=== PATIENT | female | born 1940 | race Caucasian/White ===

== ENCOUNTER 2016-09-15 16:33 | Emergency (ER) | payer MEDICARE, OTHER ==
[2016-09-15 16:56] VITALS: TEMP 97.6
[2016-09-15] MEDS: LIDOCAINE VIS-MYLANTA 30 ML UD PO ONE (17:13)
--- NOTE | 2016-09-15 17:22 | RAD ---
NAME: KAUSHAL MENDOSAPROCEDURE: XR CHEST 2 VIEWSORDER DATE: 09/15/2016 4:55 PM CSTACCESSION NUMBER: [id number] CLINICAL HISTORY: chest pain INDICATION: Same as above COMPARISON: 12/29/2012 TECHNIQUE: PA and and lateral chest radiographs were obtained. FINDINGS: The lung mtz are well inflated. There are no discrete airspace infiltrates, pneumothoraces or pleural effusions. The pulmonary vascularity is normal The cardiomediastinal silhouette is unremarkable for patient's age and sex. IMPRESSION: There is no acute pleural-parenchymal process seen in the imaged lung mtz. Place of interpretation: Teleradiology. 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
[2016-09-15] MEDS ORDERED: ENOXAPARIN SODIUM 80 MG/0.8 ML SYG SUBCU ONE (18:07)
[2016-09-15] MEDS: ASPIRIN (CHEWABLE) 81 MG TAB PO ONE (18:08)
[2016-09-15] MEDS: CLOPIDOGREL 75 MG TAB PO ONE (18:09)
[2016-09-15] MEDS: METOPROLOL TARTRATE 50 MG TAB PO ONE (18:10)
--- NOTE | 2016-09-15 18:18 | ED.PDOC ---
History of Present Illness - General Chief Complaint: Chest Pain/NV Stated Complaint: chest pain Time Seen by Provider: 09/15/16 16:45 Source: patient Exam Limitations: no limitations - History of Present Illness Initial Comments: The patient is a 76-year-old female presenting to the emergency room secondary to intermittent chest pain for the last 2 nights. She is largely chest pain free upon arrival here rating it a 1-2/10. Chest pain is substernal with radiation to the left shoulder and left jaw. No palpitations. No syncopal or near syncope. It is started both nights around 10 PM when she is up doing stuff usually cleaning the kitchen. It does last most of the way through the night. Does get better around morning. She has seen Dr. Patel in the past for her hypertension. She denies any coronary disease in the past. She recently lost her a week and a half ago. No fevers. No other symptoms.she does have gastroesophageal reflux disease but is currently not taking medications for it. Severity: moderate Improving Factors: rest Worsening Factors: nothing Associated Symptoms: malaise Allergies/Adverse Reactions: Allergies Sulfamethoxazole w/Trimethoprim [From Bactrim] Allergy (Intermediate, Verified 11/08/14 07:17) Rash Home Medications: Ambulatory Orders Levothyroxine Sodium [Levoxyl] 75 mcg PO DAILY 12/29/12 Gabapentin 600 mg PO TID 08/27/15 Methylphenidate HCl [Ritalin] 10 mg PO QID 08/27/15 Vortioxetine HBr [Brintellix] 10 mg PO DAILY 08/27/15 Review of Systems - Review of Systems Constitutional: States: no symptoms reported EENTM: States: no symptoms reported Respiratory: States: no symptoms reported Cardiology: States: chest pain Gastrointestinal/Abdominal: States: no symptoms reported Genitourinary: States: no symptoms reported Musculoskeletal: States: no symptoms reported Skin: States: no symptoms reported Neurological: States: no symptoms reported Endocrine: States: no symptoms reported All other Systems: No Change from Baseline Past Medical History (General) - Patient Medical History Hx Seizures: No Hx Stroke: No Hx Asthma: No Hx of COPD: No Hx Cardiac Disorders: Yes - high lipids,Leaky valve Hx Congestive Heart Failure: No Hx Pacemaker: No Hx Hypertension: Yes Hx Diabetes: No Hx MRSA: No MRSA Source:: Wound Surgical History: Hysterectomy - Vaccination History Hx Influenza Vaccination: No Hx Pneumococcal Vaccination: Yes - Social History Hx Tobacco Use: Yes - quit in 1971 Hx Alcohol Use: No Hx Substance Use: No Hx Physical Abuse: No Hx Emotional Abuse: No Family Medical History - Family History Father Living Status: Physical Exam - Physical Exam General Appearance: Alert, No apparent distress Eye Exam: bilateral normal Ears, Nose, Throat: normal ENT inspection, normal pharynx Neck: non-tender, full range of motion, supple, normal inspection Respiratory: chest non-tender, lungs clear, normal breath sounds, no respiratory distress, no accessory muscle use Cardiovascular/Chest: normal peripheral pulses, regular rate, rhythm, no edema Peripheral Pulses: radial,right: 2+, radial,left: 2+, dorsalis pedis,right: 2+, dorsalis pedis,left: 2+ Gastrointestinal/Abdominal: normal bowel sounds, non tender Rectal Exam: deferred Back Exam: normal inspection, no CVA tenderness Extremity: normal range of motion, non-tender, normal inspection, no pedal edema , normal capillary refill Neurologic: alert, normal mood/affect, oriented x 3 Skin Exam: normal color Comments: Vital Signs - 24 hr 09/15/16 16:50 Temperature 97.6 F Pulse Rate [ 70 Right Brachial] Respiratory 20 Rate Blood Pressure 160/77 [Right Arm] O2 Sat by Pulse 96 Oximetry Progress - Progress Progress: 09/15/16 18:19 the patient is a 76-year-old female presenting with chest pain that is a non-ST elevation myocardial infarction until proven otherwise. Cardiac enzymes are mildly elevated. BNP is significantly more elevated than at her previous check. The patient has been given a dose of Lovenox, aspirin and Plavix. She is currently chest pain-free. The patient will be transferred to [facility] for cardiac evaluation. Her prime minister is Dr. Patel. No nitroglycerin at this time. Beta ginny has been given. - Results/Orders Results/Orders: Laboratory Tests 09/15/16 16:40 WBC 7.2 RBC 4.39 Hgb 14.3 Hct 43.1 MCV 98.2 MCH 32.5 H MCHC 33.3 RDW 13.7 Plt Count 265 MPV 7.9 Absolute Neuts (auto) 5.10 Absolute Lymphs (auto) 1.20 Absolute Monos (auto) 0.70 Absolute Eos (auto) 0.10 Absolute Basos (auto) 0.10 Neutrophils % 71.1 Lymphocytes % 16.6 L Monocytes % 10.4 H Eosinophils % 0.9 L Basophils % 1.0 PT 10.8 INR 0.950 PTT (SP) 28.0 D-Dimer, Quantitative < 200 Sodium 136 Potassium 3.3 L Chloride 101 Carbon Dioxide 25 Anion Gap 13.3 BUN 15 Creatinine 0.86 BUN/Creatinine Ratio 17.4 Random Glucose 111 H Serum Osmolality 273.5 L Calcium 9.4 Total Bilirubin 0.7 AST 32 ALT 21 Alkaline Phosphatase 90 Creatine Kinase 183 H CK-MB (CK-2) 12.4 H* CK-MB (CK-2) % 6.78 H Troponin I 0.06 H B-Natriuretic Peptide 312.0 H* Serum Total Protein 7.7 Albumin 4.5 Globulin 3.2 Albumin/Globulin Ratio 1.4 Amylase 47 Lipase 27 TSH 0.63 EKG shows normal sinus rhythm with poor R-wave progression in anterior leads. This EKG is consistent with EKG from 2013. No acute ST segment changes particularly concerning for ischemia. Possible mild LVH. Departure - Departure Clinical Impression: Acute myocardial infarction Qualifiers: Myocardial infarction ST status: non-ST elevation myocardial infarction Qualifier Code: (I21.4) Non-ST elevation (NSTEMI) myocardial infarction Disposition: Transfer to Hospital Home Medications: Ambulatory Orders Levothyroxine Sodium [Levoxyl] 75 mcg PO DAILY 12/29/12 Gabapentin 600 mg PO TID 08/27/15 Methylphenidate HCl [Ritalin] 10 mg PO QID 08/27/15 Vortioxetine HBr [Brintellix] 10 mg PO DAILY 08/27/15 Transfer to Outside Facility - Transfer Information Accepting Provider:: dr galeana Accepting Facility: [facility] Reason for Transfer: required specialist not available
[2016-09-15] MEDS ORDERED: NITROGLYCERIN 2% 1 GM UD TOP ONE (18:48)
[2016-09-15] MEDS: NITROGLYCERIN 2% 1 GM UD TOP ONE (18:53)
[2016-09-15 18:55] VITALS: BP 180/89; O2SAT 94
--- NOTE | 2016-10-11 23:49 | RAD ---
NAME: KAUSHAL MENDOSAPROCEDURE: XR CHEST 2 VIEWSORDER DATE: 09/15/2016 4:55 PM CSTACCESSION NUMBER: [id number] CLINICAL HISTORY: chest pain INDICATION: Same as above COMPARISON: 12/29/2012 TECHNIQUE: PA and and lateral chest radiographs were obtained. FINDINGS: The lung mtz are well inflated. There are no discrete airspace infiltrates, pneumothoraces or pleural effusions. The pulmonary vascularity is normal The cardiomediastinal silhouette is unremarkable for patient's age and sex. IMPRESSION: There is no acute pleural-parenchymal process seen in the imaged lung mtz. Place of interpretation: Teleradiology. Electronically signed by: Hiram Aguilar MD 09/15/2016 5:21 PM NURSE CASE MANAGEMENT
--- NOTE | 2016-10-12 04:24 | RAD ---
NAME: KAUSHAL MENDOSAPROCEDURE: XR CHEST 2 VIEWSORDER DATE: 09/15/2016 4:55 PM CSTACCESSION NUMBER: [id number] CLINICAL HISTORY: chest pain INDICATION: Same as above COMPARISON: 12/29/2012 TECHNIQUE: PA and and lateral chest radiographs were obtained. FINDINGS: The lung mtz are well inflated. There are no discrete airspace infiltrates, pneumothoraces or pleural effusions. The pulmonary vascularity is normal The cardiomediastinal silhouette is unremarkable for patient's age and sex. IMPRESSION: There is no acute pleural-parenchymal process seen in the imaged lung mtz. Place of interpretation: Teleradiology. 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
== END 2016-09-15 18:55 | disposition short-term general hospital (02) ==
LOC: ER 16:33
DX: I21.4 Non-ST elevation (NSTEMI) myocardial infarction (principal); I10 Essential (primary) hypertension; E78.5 Hyperlipidemia, unspecified; I38 Endocarditis, valve unspecified; Z87.891 Personal history of nicotine dependence; Z88.2 Allergy status to sulfonamides; Z79.899 Other long term (current) drug therapy
CPT/HCPCS: 36415; 71020; 80053; 82150; 82550; 82553; 83690; 83880; 84443; 84484; 85025; 85379; 85610; 85730; J1650

== ENCOUNTER 2016-11-25 16:59 | Emergency (ER) | payer MEDICARE, OTHER ==
[~2016-11-25 16:59] MED LIST: AMIODARONE HCL 150 MG/3 ML VIAL IVPB ONE; LIDOCAINE 2 % GEL 5 ML TUBE TOP ONE
[2016-11-25] MEDS ORDERED: AMIODARONE IV (LOAD) 150 MG in DEXTROSE 5% 100ML 100 ML IVPB ONE (17:22)
[2016-11-25] MEDS ORDERED: DEXTROSE 5% 100ML 100 ML IVPB ONE (17:26)
[2016-11-25] MEDS ORDERED: SODIUM CHLORIDE 0.9% (FLUSH) 10 ML SYG IV PRN (17:27)
[2016-11-25] MEDS ORDERED: NITROGLYCERIN 0.4 MG 25 EA TAB SL ONE (17:27)
[2016-11-25] MEDS ORDERED: ASPIRIN TABLET 325 MG TAB PO ONE (17:27)
[2016-11-25] MEDS ORDERED: AMIODARONE IV (MAINT) 900 MG in DEXTROSE 5% (AVIVA) 500ML 500 ML IVPB SCH (17:30)
[2016-11-25] MEDS ORDERED: AMIODARONE HCL 900 MG/18 ML VIAL IVPB ONE (17:34)
[2016-11-25] MEDS ORDERED: DEXTROSE 5% (AVIVA) 500ML 500 ML IVPB ONE (17:35)
--- NOTE | 2016-11-25 17:45 | ED.PDOC ---
History of Present Illness - General Chief Complaint: Syncope/Near Syncope Stated Complaint: syncope Time Seen by Provider: 11/25/16 17:27 Source: patient Exam Limitations: no limitations - History of Present Illness Initial Comments: PT REPORTS AN EPISODE OF SYNCOPE TODAY JUST BEFORE PRESENTING TO THE ED. PT STATES THAT SHE HAD NO WARNING PRIOR TO SYNCOPAL EPISODE. PT HAS BEEN EXPERIENCING INTERMITTENT EPISODES OF CHEST PRESSURE AND PALPITATIONS. PT WAS SEEN BY HER RAILROAD ENGINEER (DR. LOCKHART) YESTERDAY AND HAD AN EKG DONE IN THE OFFICE. PT SUSTAINED ABRASIONS TO THE FACE, LACERATION TO THE LIP AND CHIPPED TEETH A RESULT OF THE FALL. Timing/Prior Episodes: multiple episodes today, recent history Precipitating Factors: rapid heart beat Context: standing Loss of Consciousness: brief (seconds) Current Symptoms: chest pain, dizziness, other - PALPITATIONS Allergies/Adverse Reactions: Allergies Sulfamethoxazole w/Trimethoprim [From Bactrim] Allergy (Intermediate, Verified 11/08/14 07:17) Rash Home Medications: Ambulatory Orders Levothyroxine Sodium [Levoxyl] 75 mcg PO DAILY 12/29/12 Gabapentin 600 mg PO TID 08/27/15 Methylphenidate HCl [Ritalin] 10 mg PO QID 08/27/15 Vortioxetine HBr [Brintellix] 10 mg PO DAILY 08/27/15 Review of Systems - Review of Systems Constitutional: Denies: chills, fever EENTM: Denies: ear pain, throat pain Respiratory: Denies: cough, short of breath Cardiology: States: see HPI, chest pain, palpitations, syncope Gastrointestinal/Abdominal: Denies: abdominal pain, nausea Genitourinary: Denies: dysuria, frequency Musculoskeletal: Denies: joint pain, neck pain Skin: Denies: change in color, dryness Neurological: Denies: numbness, paresthesia Past Medical History (General) - Patient Medical History Hx Seizures: No Hx Stroke: No Hx Asthma: No Hx of COPD: No Hx Cardiac Disorders: Yes - high lipids,Leaky valve Hx Congestive Heart Failure: No Hx Pacemaker: No Hx Hypertension: Yes Hx Diabetes: No Hx MRSA: No MRSA Source:: Wound - Vaccination History Hx Tetanus, Diphtheria Vaccination: - unknown Hx Influenza Vaccination: No Hx Pneumococcal Vaccination: Yes - Social History Hx Tobacco Use: Yes - quit in 1971 Hx Alcohol Use: No Hx Substance Use: No Hx Physical Abuse: No Hx Emotional Abuse: No Physical Exam - Physical Exam General Appearance: Anxious, Obvious distress Eyes, Ears, Nose, Throat Exam: other - SUPERFICIAL ABRASION TO THE PHILTRIM, CHIPPED INSCISORS, 1 CM LACERATON TO THE MUCOSAL SURFACE OF THE UPPER LIP Neck: non-tender, full range of motion, supple Cardiovascular/Respiratory: no M/R/G, irregularly irregular Gastrointestinal/Abdominal: non tender, soft Back Exam: normal inspection, no vertebral tenderness Extremity: normal range of motion, pedal edema - 1+, other - SKIN TEAR TO THE LEFT FOREARM AN RIGHT KNEE Mental Status: alert, oriented x 3 white spooler Exam: normal hearing, normal speech, PERRL Motor/Sensory: no motor deficit, no sensory deficit Skin Exam: normal color, warm/dry Progress - Progress Progress: 11/25/16 17:40 150MG IV AMIODARONE ORDERED WITH AMIODARONE DRIP FOR RUNS OF NON SUSTAINED VTACH. 11/25/16 18:[address] WEAVER AT [facility] WHO AGREES TO ACCEPT TRANSFER. - Results/Orders Results/Orders: 11/25/16 17:27 Telemetry .ONCE Sodium Chloride 0.9% (Flush) [Saline Flush Syringe] 10 ml IV PRN PRN EKG Stat Pulse Ox Stat 11/25/16 17:28 Pulse Oximetry Assessment DAILY 11/25/16 17:30 Amiodarone IV (Maint) [Cordarone IV (Maint)] 900 mg Dextrose 5% (Ryann) 500Ml [D5W 500ml (RYANN BAG)] 500 ml IVPB PRN 11/25/16 17:46 Head [CT] Stat Sinuses [CT] Stat 11/25/16 17:47 Cervical Spine [CT] Stat Laboratory Results - last 24 hr 11/25/16 17:15 WBC 7.7 RBC 4.59 Hgb 14.6 Hct 43.7 MCV 95.3 MCH 31.8 H MCHC 33.4 RDW 14.2 Plt Count 283 MPV 7.8 Absolute Neuts (auto) 4.70 Absolute Lymphs (auto) 1.80 Absolute Monos (auto) 1.00 H Absolute Eos (auto) 0.20 Absolute Basos (auto) 0.10 Neutrophils % 60.6 Lymphocytes % 23.3 Monocytes % 12.8 H Eosinophils % 2.1 Basophils % 1.2 PT 11.2 INR 0.990 PTT (SP) 28.5 Sodium 135 Potassium 3.5 L Chloride 100 L Carbon Dioxide 24 Anion Gap 14.5 BUN 14 Creatinine 0.79 BUN/Creatinine Ratio 17.7 Random Glucose 97 Serum Osmolality 270.5 L Calcium 9.5 Magnesium 1.8 Total Bilirubin 1.0 Direct Bilirubin 0.2 Indirect Bilirubin 0.8 AST 28 ALT 15 Alkaline Phosphatase 98 Creatine Kinase 157 H CK-MB (CK-2) 6.5 H* CK-MB (CK-2) % 4.14 Troponin I < 0.02 B-Natriuretic Peptide 401.0 H* Serum Total Protein 7.8 Albumin 4.3 - EKG/XRAY/CT EKG: Sinus, Tachy - 101BPM WITH PACS, AND NON-SUSTAINED RUNS OF NARROW COMPLEX TACHYCARDIA. , RBBB - LAFB, LVH, no ST T wave changes Xray Comments: NO ACUTE ABNORMALITIES PER RAD. CT Ordered: Yes - CT HEAD, FACIAL BONES, C-SPINE Departure - Departure Clinical Impression: Ventricular tachycardia (paroxysmal), Syncope, Lip laceration, Skin tear, Facial abrasion Time of Disposition: 18:05 Disposition: Transfer to Hospital Condition: Fair Departure Forms: ED Discharge - Pt. Copy, Patient Portal Self Enrollment Referrals: King Ca MD [Primary Care Provider] - 1-2 Weeks Home Medications: Ambulatory Orders Levothyroxine Sodium [Levoxyl] 75 mcg PO DAILY 12/29/12 Gabapentin 600 mg PO TID 08/27/15 Methylphenidate HCl [Ritalin] 10 mg PO QID 08/27/15 Vortioxetine HBr [Brintellix] 10 mg PO DAILY 08/27/15 Critical Care Note - Critical Care Note Total Time (mins): 36 Comments: CRITICAL EVENT: NON SUSTAINED RUNS OF NARROW COMPLEX TACHYCARDIA, CHEST PAIN CRITICAL FINDINGS: EKG CHANGES, ACTIVE CHEST PAIN CRITICAL ACTIONS: INITIATION OF IV AMIODARONE Transfer to Outside Facility - Transfer Information Accepting Provider:: DR. WEAVER Accepting Facility: [facility] Reason for Transfer: required specialist not available
--- NOTE | 2016-11-25 17:59 | RAD ---
Procedure: XR CHEST 1 VIEW Exam Date: 11/25/2016 Ordering Provider: Tyrese Jordan Clinical Indication: SYNCOPE Comparison: 09/15/2016 Findings: Cardiac size is magnified by technique. Pulmonary vasculature is normal. Mediastinal contour is normal. Aortic contour is normal. There is no focal lung consolidation. No pleural effusion. There is no pneumothorax. There is no acute bony or soft tissue abnormality. Impression: 1. No acute abnormalities in the chest. Electronically signed by: Flaquito Grijalva MD 11/25/2016 5:58 PM CDT
[2016-11-25] MEDS ORDERED: LIDOCAINE 1% 10 ML VIAL INJ ONE (18:02)
[2016-11-25 19:18] VITALS: BP 147/72; TEMP 98.6; O2SAT 96
--- NOTE | 2016-11-25 19:20 | CT ---
Procedure: CT CERVICAL SPINE WITHOUT IV CONTRAST Exam Date: 11/25/2016 Ordering Provider: Tyrese Jordan Clinical Indication: TRAUMA Comparison: None Technique: Using a multislice scanner, sequential axial imaging was obtained from the skull base to the T1 level. 2-D sagittal and coronal reconstruction images were obtained. This exam was performed according to our departmental dose optimization program which includes use of automated exposure control, adjustment of the mA and/or kV according to patient size and/or use of iterative reconstruction technique. Findings: There is no acute fracture or subluxation. Grade 1 anterolisthesis of C4 on C5. Multilevel intervertebral disc space narrowing and endplate osteophyte formation. Diffuse demineralization of the bones. There is no lytic or sclerotic lesion. The prevertebral soft tissues are normal. Incomplete fusion of the posterior elements of C1. IMPRESSION: 1. No acute fracture or subluxation of the cervical spine. Electronically signed by: Flaquito Grijalva MD 11/25/2016 7:19 PM CDT
--- NOTE | 2016-11-25 19:25 | CT ---
Procedure: CT HEAD WITHOUT IV CONTRAST Exam Date: 11/25/2016 Ordering Provider: Tyrese Jordan Clinical Indication: HEAD TRAUMA Comparison: 06/13/2008 Technique: Using a helical scanner, sequential axial imaging of the brain was obtained without the administration of intravenous contrast. The exam was obtained from the skull base to vertex. This exam was performed according to our departmental dose optimization program which includes use of automated exposure control, adjustment of the mA and/or kV according to patient size and/or use of iterative reconstruction technique. Findings: Ventricular size and configuration are normal. There is no midline shift or hydrocephalus. There is no acute intracranial hemorrhage or mass effect. There is no acute infarct. Hypodensities in the periventricular and subcortical white matter of both cerebral hemispheres are nonspecific but likely related to chronic ischemic small vessel disease. The calvarium is intact. There is no fracture. There is no lytic or sclerotic lesion. The visualized paranasal sinuses and mastoid air cells are clear. Soft tissue swelling overlying the left side of the upper calvarium. IMPRESSION: No acute intracranial abnormality demonstrated. Electronically signed by: Flaquito Grijalva MD 11/25/2016 7:25 PM CDT
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
== END 2016-11-25 19:18 | disposition short-term general hospital (02) ==
LOC: ER 16:59
DX: I47.2 Ventricular tachycardia (principal); R55 Syncope and collapse; S01.511A Laceration without foreign body of lip, initial encounter; W19.XXXA Unspecified fall, initial encounter; S00.81XA Abrasion of other part of head, initial encounter; E78.5 Hyperlipidemia, unspecified; I38 Endocarditis, valve unspecified; Z87.891 Personal history of nicotine dependence; Z88.2 Allergy status to sulfonamides; Z79.899 Other long term (current) drug therapy
CPT/HCPCS: 70450; 70486; 71010; 72125; 80048; 80076; 82550; 82553; 83880; 84484; 85025; 85610; 85730; 93005; J0282; J7060

== ENCOUNTER 2017-02-08 22:47 | Inpatient (IN) | payer MEDICARE, OTHER ==
--- NOTE | 2017-02-08 23:50 | RAD ---
PROCEDURE: Chest,2 Views CLINICAL HISTORY: near syncope INDICATION: Same as above COMPARISON: 11/25/2016 TECHNIQUE: PA and and lateral chest radiographs were obtained. FINDINGS: There is presence of a dual-chamber left-sided pacemaker in place. Minimal parenchymal scarring is again noted in the bilateral lower lobes of the lung, slightly worse on the left side There are no discrete airspace infiltrates, pneumothoraces or pleural effusions. The pulmonary vascularity is normal The cardiomediastinal silhouette is stable. IMPRESSION: There is no acute pleural-parenchymal process seen in the imaged lung mtz. Place of interpretation: Teleradiology. Electronically signed by: Hiram Aguilar MD 02/08/2017 11:48 PM CDT Workstation: [id number]
[2017-02-09] MEDS ORDERED: CLINDAMYCIN HCL CAP 150 MG CAP PO ONE (00:53)
[2017-02-09] MEDS ORDERED: SOD CHL IVS ONE (01:54)
[2017-02-09] MEDS ORDERED: HYPERTONIC IVS ONE (01:54)
--- NOTE | 2017-02-09 02:07 | ED.PDOC ---
History of Present Illness - General Chief Complaint: Upper Extremity Injury Stated Complaint: multiple wounds on body Time Seen by Provider: 02/08/17 23:09 Source: patient Exam Limitations: no limitations - History of Present Illness Initial Comments: the patient is a 76-year-old female presenting to the emergency room secondary to pain in the right forearm. The patient hada near syncopal episode approximately 1 week ago and fell sustaining multiple abrasions including abrasion to her right upper extremity. She placed Band-Aids over the extremity abrasions and had not taken the Band-Aids off for the entire week. She started noticing seeping through the bandage and some swelling around the area. This was associated with an increase in pain over the last 24 hours. She has no difficulty moving the elbow or the forearm. She does appear neurovascularly intact in the upper extremities and vascularly intact in the lower extremities. The patient has multiple areas of abrasions that are still covered with Band- Aids from a week ago. Large amounts of dried blood from that fall. She has abrasions to bilateral lower extremities, bilateral upper extremities, andher left forehead as well. Multiple of the wounds are significantly foul-smelling. There is some mild surrounding cellulitis to the right upper extremity abrasion. No baldev pus drainage however. She does have a significant bruise around the area. She does take Plavix. The patient has apparently had significant issues with falling for the last 4-5 months. She was found to have a significant arrhythmia and had a defibrillator placed along with a pacemaker and was placed on amiodarone a few months ago. She has continued however to have the near syncopal episodes. She does have a documented history of orthostasis. She apparently had something of a workup for her near syncopal episodes at the outside hospital where she had the pacemaker placed. I do not have the results of that workup. She did have a CT scan of her head and her cervical spine here less than 2 months ago. She is not reporting any significant head pain or neck pain here today. Timing/Duration: unsure Severity: moderate Improving Factors: nothing Worsening Factors: nothing Associated Symptoms: loss of appetite, malaise, weakness Allergies/Adverse Reactions: Allergies Sulfamethoxazole w/Trimethoprim [From Bactrim] Allergy (Intermediate, Verified 02/09/17 00:21) Rash Home Medications: Ambulatory Orders Levothyroxine Sodium [Levoxyl] 100 mcg PO DAILY 12/29/12 Gabapentin 300 mg PO TID 08/27/15 Methylphenidate HCl [Ritalin] 10 mg PO QID PRN 08/27/15 Vortioxetine HBr [Brintellix] 10 mg PO DAILY 08/27/15 Amiodarone HCl 200 mg PO DAILY 02/09/17 Aspirin [Baby Aspirin] 81 mg PO DAILY 02/09/17 Clopidogrel Bisulfate [Plavix] 75 mg PO DAILY 02/09/17 Metoprolol Succinate [Metoprolol Succinate ER] 50 mg PO BID 02/09/17 Pravastatin Sodium [Pravachol] 20 mg PO DAILY 02/09/17 Review of Systems - Review of Systems Constitutional: States: malaise, weakness - generalized EENTM: States: no symptoms reported Respiratory: States: no symptoms reported Cardiology: States: no symptoms reported Gastrointestinal/Abdominal: States: no symptoms reported Genitourinary: States: no symptoms reported Musculoskeletal: States: muscle pain Skin: States: see HPI Neurological: States: depressed, numbness - chronic to her lower extremities, weakness - generalized Endocrine: States: no symptoms reported All other Systems: No Change from Baseline Past Medical History (General) - Patient Medical History Hx Seizures: No Hx Stroke: No Hx Dementia: No Hx Asthma: No Hx of COPD: No Hx Cardiac Disorders: Yes - high lipids,Leaky valve Hx Congestive Heart Failure: No Hx Pacemaker: Yes Hx Hypertension: Yes Hx Thyroid Disease: Yes Hx Diabetes: No Hx Gastroesophageal Reflux: Yes Hx Renal Disease: No Hx Cancer: No Hx of HIV: No Hx Hepatitis C: No Hx MRSA: No MRSA Source:: Wound Surgical History: Hysterectomy, other - Vaccination History Hx Tetanus, Diphtheria Vaccination: - unknown Hx Influenza Vaccination: No Hx Pneumococcal Vaccination: Yes Immunizations Up to Date: No - Social History Hx Tobacco Use: Yes - quit in 1971 Hx Chewing Tobacco Use: No Hx Alcohol Use: No Hx Substance Use: No Hx Substance Use Treatment: No Hx Depression: No Feels Threatened In Home Enviroment: No Feels Threatened In a Relationship: No Hx Physical Abuse: No Hx Emotional Abuse: No Family Medical History - Family History Father Living Status: Physical Exam - Physical Exam General Appearance: Alert, Frail Eye Exam: bilateral normal Ears, Nose, Throat: hearing grossly normal, normal ENT inspection, normal pharynx Neck: non-tender, full range of motion, supple Respiratory: chest non-tender, lungs clear, normal breath sounds, no respiratory distress, no accessory muscle use Cardiovascular/Chest: normal peripheral pulses, no edema, other - regular rate Peripheral Pulses: radial,right: 2+, radial,left: 2+, dorsalis pedis,right: 2+, dorsalis pedis,left: 2+ Gastrointestinal/Abdominal: non tender, soft Rectal Exam: deferred Back Exam: normal inspection, no CVA tenderness, no vertebral tenderness Extremity: normal range of motion, no pedal edema, no calf tenderness, normal capillary refill Neurologic: [employer] II-XII nml as tested, alert, oriented x 3, other - he does have chronic lower extremity sensory loss Skin Exam: other - the patient has multiple scattered Comments: Vital Signs - 24 hr 02/08/17 02/09/17 02/09/17 23:35 00:00 00:56 Temperature 97.9 F Pulse Rate [ 71 74 69 monitor] Respiratory 16 Rate Blood Pressure 162/95 146/87 174/97 [Left Arm] O2 Sat by Pulse 91 L Oximetry 02/09/17 00:57 Temperature Pulse Rate [ 74 monitor] Respiratory Rate Blood Pressure 146/87 [Left Arm] O2 Sat by Pulse Oximetry with tilt vital signs, the patient's systolic blood pressure drops 30 points. She is still technically normotensive. She does get a little bit dizzy. Progress - Progress Progress: 02/09/17 02:12 the patient is a 76-year-old female presenting to the emergency room primarily due to symptoms of cellulitis from her right upper extremity abrasion from the fall one week ago. The patient is receiving a dose of clindamycin for this. Her wounds were cleaned and they were multiple. The patienthas some significant hyponattremia and is receiving some hypertonic saline currently for correction. This may be contributing to her falling. Hyponatremic and may be due to the psychiatric medication. The patient does technically have symptomatic orthostasis which is not a new issue. This likely also contributes to her falls as does her significant lower extremity peripheral neuropathy. The patient does have an elevated TSH and is on amiodarone. These will need to be followed. The patient has obviously not been able to perform her ADLs over the last week. She is obviously not had a bath during that time and her wounds have not been cleaned. She may need to be set up with home health for these purposes. The patient is uncertain if she has had carotid Dopplers performed at the outside hospital. This will need to be checked on during the daytime. Admitted for correction of hyponatremia. - Results/Orders Results/Orders: Laboratory Tests 02/08/17 02/08/17 02/08/17 23:35 23:35 23:35 WBC RBC Hgb Hct MCV MCH MCHC RDW Plt Count MPV Absolute Neuts (auto) Absolute Lymphs (auto) Absolute Monos (auto) Absolute Eos (auto) Absolute Basos (auto) Neutrophils % Lymphocytes % Monocytes % Eosinophils % Basophils % PT 10.9 INR 0.960 PTT (SP) 26.2 Sodium 127 L Potassium 3.8 Chloride 94 L Carbon Dioxide 21 Anion Gap 15.8 BUN 15 Creatinine 1.05 BUN/Creatinine Ratio 14.3 Random Glucose 96 Serum Osmolality 255.9 L Calcium 8.7 Magnesium 1.8 Total Bilirubin 0.5 AST 40 ALT 27 Alkaline Phosphatase 100 Creatine Kinase 128 CK-MB (CK-2) 4.0 CK-MB (CK-2) % Not Reportable Troponin I 0.00 L B-Natriuretic Peptide 459.0 H* Serum Total Protein 6.9 Albumin 4.0 Globulin 2.9 Albumin/Globulin Ratio 1.4 TSH 8.34 H Urine Color Urine Appearance Urine pH Ur Specific [place] Urine Protein Urine Glucose (UA) Urine Ketones Urine Blood Urine Nitrite Urine Bilirubin Urine Urobilinogen Ur Leukocyte Esterase Urine RBC Urine WBC Ur Epithelial Cells Urine Bacteria 02/08/17 02/09/17 23:35 01:00 WBC 6.0 RBC 3.09 L Hgb 10.1 L Hct 30.4 L MCV 98.2 MCH 32.6 H MCHC 33.2 RDW 14.7 H Plt Count 337 MPV 7.0 L Absolute Neuts (auto) 3.90 Absolute Lymphs (auto) 1.00 Absolute Monos (auto) 0.80 Absolute Eos (auto) 0.20 Absolute Basos (auto) 0.10 Neutrophils % 65.6 Lymphocytes % 17.3 L Monocytes % 12.8 H Eosinophils % 3.3 Basophils % 1.0 PT INR PTT (SP) Sodium Potassium Chloride Carbon Dioxide Anion Gap BUN Creatinine BUN/Creatinine Ratio Random Glucose Serum Osmolality Calcium Magnesium Total Bilirubin AST ALT Alkaline Phosphatase Creatine Kinase CK-MB (CK-2) CK-MB (CK-2) % Troponin I B-Natriuretic Peptide Serum Total Protein Albumin Globulin Albumin/Globulin Ratio TSH Urine Color Yellow Urine Appearance Clear Urine pH 6.5 Ur Specific [place] 1.010 Urine Protein Negative Urine Glucose (UA) Negative Urine Ketones Negative Urine Blood Trace-lysed H Urine Nitrite Negative Urine Bilirubin Negative Urine Urobilinogen 0.2 Ur Leukocyte Esterase Trace H Urine RBC 0-1 Urine WBC 0-1 Ur Epithelial Cells 1-3 Urine Bacteria Rare EKG shows what appears to be an atrial paced rhythm. No acute ST segment changes concerning for ischemia. Borderline LVH criteria, versus left anterior fascicular block. Chest x-ray shows no acute pathology. Departure - Departure Clinical Impression: Hyponatremia, Orthostasis, Recurrent falls Cellulitis Qualifiers: Site of cellulitis: extremity Site of cellulitis of extremity: upper extremity Laterality: right Qualified Code(s): L03.113 - Cellulitis of right upper limb Disposition: Admit Patient Home Medications: Ambulatory Orders Levothyroxine Sodium [Levoxyl] 100 mcg PO DAILY 12/29/12 Gabapentin 300 mg PO TID 08/27/15 Methylphenidate HCl [Ritalin] 10 mg PO QID PRN 08/27/15 Vortioxetine HBr [Brintellix] 10 mg PO DAILY 08/27/15 Amiodarone HCl 200 mg PO DAILY 02/09/17 Aspirin [Baby Aspirin] 81 mg PO DAILY 02/09/17 Clopidogrel Bisulfate [Plavix] 75 mg PO DAILY 02/09/17 Metoprolol Succinate [Metoprolol Succinate ER] 50 mg PO BID 02/09/17 Pravastatin Sodium [Pravachol] 20 mg PO DAILY 02/09/17 Decision To Admit - Decistion To Admit Decision to Admit Reason: Medical Nature Decision to Admit Date: 02/09/17 Decision to Admit Time: 02:16
[2017-02-09] MEDS ORDERED: MAGNESIUM HYDROXIDE 30 ML UD PO PRN (02:29)
[2017-02-09] MEDS ORDERED: HYDROcodone 5MG/APAP 325MG 1 EA TAB PO PRN (02:29)
[2017-02-09] MEDS ORDERED: SODIUM CHLORIDE 0.9% (FLUSH) 10 ML SYG IV PRN (02:29)
[2017-02-09] MEDS ORDERED: ACETAMINOPHEN 325 MG TAB PO PRN (02:29)
[2017-02-09] MEDS ORDERED: ALUM & MAG HYDROX-SIMETHICONE 30 ML UD PO PRN (02:29)
[2017-02-09] MEDS ORDERED: IV SET AND CAP CHANGE INJ INJ SCH (02:30)
--- NOTE | 2017-02-09 03:31 | HP ---
SUPERVISING PHYSICIAN: Mario Diggs M.D. CHIEF COMPLAINT: Multiple abrasions with history of past falls. HISTORY OF PRESENT ILLNESS: Ms. Wiseman is a 76 year-old female that presented to the Emergency Department due to pain she was having in her right forearm. The patient notes that she has had several near syncopal episodes approximately a week previous when she fell sustaining multiple abrasions, including an abrasion to her right upper extremity. At that time, she placed a bandage over the extremity abrasion and did not take the bandage off until a week post injury. She started noticing some seeping around the bandage and then some swelling around the area. She was also noting that she was having increasing pain over the last 24 hours prior to admission. She was also having some difficulty moving the elbow, forearm and extremities due to soreness, but denied any neurovascular changes. It was also noted that the patient had multiple abrasions to the bilateral lower extremities and upper extremities as well as her forehead. She had multiple wounds and some surrounding cellulitis to that right upper extremity from an abrasion, but no obvious drainage. She is on Plavix and has significant bruising around the area. She noted that she has a significant issue with falling over the last 4 to 5 months. At some point in the past year, she was found to have a significant arrhythmia and had a defibrillator placed along with a pacemaker as well as starting on Amiodarone in the last several months. She has continued to have some near syncopal episodes and has had some documentation of history of orthostasis. Laboratory studies in the Emergency Department showed that she had a significant hyponatremia with sodium 127. Other electrolytes were within normal limits. Liver functions as well were within normal limits. BNP was elevated at 459. CBC showed normal white count with white count of 6.0, hemoglobin and hematocrit were significantly showing anemia of 10.1 and 30.4 for hematocrit. Differential showed to be within normal limits. Urinalysis showed just a trace of blood on dipstick with leukocyte esterase, otherwise microscopic was within normal limits. Given the significant findings for hyponatremia and past history of multiple falls, Dr. Roberson requested the patient be admitted to the hospital for treatment of her hyponatremia and further assessment of past syncopal episodes. It is noted that she also is on an antidepressant, Brintellix which has a side effect of causing some hyponatremia which possibly could be contributing to the current hyponatremic state. The patient was admitted to the Medical/Surgical floor in stable condition. PAST MEDICAL HISTORY: 1. Seasonal allergies. 2. Hyperlipidemia. 3. Hypertension. 4. Hypothyroidism. 5. Iron deficiency anemia. 6. Osteoarthritis. 7. History of atrial fibrillation with pacemaker placement on Eliquis. PAST SURGICAL HISTORY: 1. Partial hysterectomy. 2. Sinus surgery. 3. Colonoscopy in 07/[address] Mayorga. HOME MEDICATIONS: 1. Gabapentin 300 mg 3 times a day. 2. Plavix 75 mg daily. 3. Aspirin 81 mg daily. 4. Amiodarone 200 mg daily. 5. Pravachol 20 mg daily. 6. Metoprolol succinate extended release 50 mg twice daily. 7. Ritalin 10 mg 4 times a day. 8. Levoxyl 100 mcg daily. 9. Brintellix 10 mg daily. ALLERGIES: BACTRIM AND SULFA DRUGS. FAMILY HISTORY: Unremarkable. SOCIAL HISTORY: The patient is retired. She is . She has never smoked. She says she drinks an occasional martini at supper or wine and sometimes coty at night. She denies any illicit drug use. REVIEW OF SYSTEMS: CONSTITUTIONAL: Noted general malaise and weakness. HEENT: No headaches, visual disturbances or nasal congestion. RESPIRATORY: No shortness of breath, exertional dyspnea or cough. CARDIOVASCULAR: No reported chest pains, palpitations, but does note past multiple syncopal episodes with a recent pacemaker inflated for atrial fibrillation. GASTROINTESTINAL: Denies any nausea, vomiting or diarrhea. GENITOURINARY: Denies any dysuria, hematuria or other urinary symptoms. MUSCULOSKELETAL: Denies generalized muscle pain. INTEGUMENT: As noted in the History of Present Illness, muscle abrasions to the upper and lower extremities from previous falls. NEUROLOGIC: She notes that she has neuropathies chronic to her lower extremities and generalized weakness, but denies any neurological symptoms. PHYSICAL EXAMINATION: VITAL SIGNS: Temperature 97.9, pulse 71, blood pressure 146/87, respirations 16 , satting 91% on room air at rest. Admission weight 67.3 kg. GENERAL: The patient does appear frail but is alert. Appears to be well nourished but somewhat dehydrated. HEENT: Tympanic membranes are clear bilaterally. Oropharynx is pink with mucosal membranes being dry. There are no notable lesions. NECK: Non-tender with full range of motion. Supple with no jugular venous distention. CHEST: Lungs are clear to auscultation bilaterally without any rhonchi, wheezing or rales. CARDIOVASCULAR: Regular rate and rhythm without appreciable murmurs, gallops, or rubs. ABDOMEN: Soft, non-tender. Positive bowel sounds. EXTREMITIES: No clubbing, cyanosis or edema. NEUROLOGIC: Cranial nerves II-XII are grossly intact. She is alert and oriented times three. Facial features were symmetrical. Extraocular movements are within normal limits. There is no notable nystagmus. She does have a chronic lower extremity sensory loss secondary to neuropathies. INTEGUMENT: Multiple scattered abrasions and ecchymotic areas to both upper and lower extremities, and left side of face. LABORATORY: CBC shows a normal white count at 6.0 WBCs with hemoglobin 10.1, hematocrit 34.4, platelet count 337,000. Differential shows to be within normal limits. Coagulation studies show a normal PT and PTT. Chemistry showed hyponatremia with sodium 127, potassium 3.8, BUN 50, creatinine 1.05. Osmolality was 255, calcium 8.7, glucose 96. Liver functions showed to be within normal limits. Troponin was zero. BNP was elevated at 459. TSH was elevated at 8.34. Urinalysis showed a trace of lysed blood with leukocyte esterase, otherwise microscopic showed to be within normal limits. MICROBIOLOGY: Blood cultures are pending times 2. RADIOLOGY: Chest x-ray in the Emergency Department prior to admission showed no acute pleural parenchymal processes seen in the imaged mtz per radiology interpretation. ASSESSMENT: 1. History of multiple falls within the last month with multiple abrasions to the upper extremities and lower extremities with the right extremity showing some concerns for possibly developing cellulitis but no obvious drainage. 2. Severe hyponatremia likely acute as review of the patient's chart shows no history of hyponatremia possibly related to medication regimen with resulting previous syncopal episodes and falls. 3. Hypertension. 4. Hypothyroidism on supplementation with an elevated TSH. 5. Chronic iron deficiency anemia. 6. Osteoarthritis. 7. Seasonal allergies. PLAN: The patient will be admitted to the hospital for continuation of treatment and further evaluation of hyponatremia and syncopal episodes. She was given 3% saline of 150 mL in the Emergency Department. This will be followed-up with additional IV fluids after repeat BNP to reevaluate her sodium. She will be started on DVT prophylaxis as per protocol. Will utilize basic wound care for the abrasions and utilize some Gentamicin cream topically for treatment of the right forearm. She was given a single dose of Clindamycin , but on admission was not really showing any significant cellulitis. I will go ahead and plan to get a CT of the head in the morning as well as carotid artery ultrasounds to further rule out any underlying issues in regards to the syncopal episodes. Her home medications will be reinitiated. Will anticipate length of stay to be 2 to 3 days. Until then, will continue to monitor the patient closely and treat appropriately. #[id number] [facility] [place]
[2017-02-09] MEDS ORDERED: GABAPENTIN 400 MG CAP PO ONE (03:53)
--- NOTE | 2017-02-09 11:37 | CT ---
Study: CT of the Head. Indication: multiple falls and syncopal episodes Technique: Axial CT images of the head were acquired without intravenous contrast. This exam was performed according to our departmental dose-optimization program, which includes automated exposure control, adjustment of the mA and/or kV according to patient size and/or use of iterative reconstruction technique. Comparison: None. Findings: No CT evidence of acute ischemia, acute hemorrhage, mass, mass effect, midline shift, or extra-axial fluid collection. Ventricles are normal in configuration without hydrocephalus. Patchy hypoattenuation of the periventricular and subcortical white matter noted. This is nonspecific but most consistent with chronic microvascular ischemic change. Global parenchymal volume loss and intracranial atherosclerosis noted as well. Paranasal sinuses are adequately aerated. Mastoid air cells are adequately aerated. Osseous structures and soft tissues are unremarkable. Impression: 1. No CT evidence of acute intracranial abnormality. 2. Senescent changes. Electronically signed by: Elkin Carlos MD 02/09/2017 11:36 AM CDT
--- NOTE | 2017-02-09 11:59 | US ---
Study: Bilateral Carotid Artery Doppler Sonogram. Indication: multiple near syncopal with falls Technique: Multiplanar grayscale and Doppler sonographic images of the bilateral carotid arteries and vertebral arteries were obtained. Findings: The bilateral carotid arteries demonstrate mild to moderate intimal thickening and calcified plaque. Analysis of duplex waveforms and flow velocities indicate no hemodynamically significant stenosis. The vertebral arteries demonstrate antegrade flow. Impression: Mild to moderate atherosclerosis of the bilateral carotid arteries without hemodynamically significant stenosis. Electronically signed by: Elkin Carlos MD 02/09/2017 11:58 AM CDT
[2017-02-09] MEDS: LEVOTHYROXINE SODIUM 0.1 MG TAB PO SCH (12:02)
[2017-02-09] MEDS: METOPROLOL SUCCINATE XL 50 MG TAB PO SCH ×2 (12:02→20:35)
[2017-02-09] MEDS: ASPIRIN (CHEWABLE) 81 MG TAB PO SCH (12:02)
[2017-02-09] MEDS: CLOPIDOGREL 75 MG TAB PO SCH (12:02)
[2017-02-09] MEDS: AMIODARONE HCL 200 MG TAB PO SCH (12:06)
[2017-02-09] MEDS: GABAPENTIN 100 MG CAP PO SCH ×3 (12:07→20:35)
[2017-02-09] MEDS ORDERED: KCL 20 MEQ/NS 1,000 ML IVS ONE (14:33)
[2017-02-09] MEDS: KCL 20 MEQ/NS 1,000 ML IVS PRN (14:34)
[2017-02-09] MEDS: METHYLPHENIDATE HCL 10 MG PO SCH ×3 (15:05→20:36)
[2017-02-09] MEDS ORDERED: PRAVASTATIN SODIUM 20 MG TAB ONE (19:41)
[2017-02-09] MEDS ORDERED: PRAVASTATIN SODIUM 20 MG TAB PO SCH (21:00)
[2017-02-09] MEDS: GENTAMICIN 0.1% TOPICAL CREAM 15 GM TUBE TOP SCH (23:36)
[2017-02-10] MEDS: KCL 20 MEQ/NS 1,000 ML IVS PRN (03:25)
[2017-02-10] MEDS: LEVOTHYROXINE SODIUM 0.1 MG TAB PO SCH (06:12)
[2017-02-10] MEDS ORDERED: METOPROLOL SUCCINATE XL 50 MG TAB ONE (07:28)
[2017-02-10] MEDS: GENTAMICIN 0.1% TOPICAL CREAM 15 GM TUBE TOP SCH ×2 (08:32→12:51)
[2017-02-10] MEDS: AMIODARONE HCL 200 MG TAB PO SCH (08:32)
[2017-02-10] MEDS: CLOPIDOGREL 75 MG TAB PO SCH (08:32)
[2017-02-10] MEDS: ASPIRIN (CHEWABLE) 81 MG TAB PO SCH (08:32)
[2017-02-10] MEDS: METHYLPHENIDATE HCL 10 MG PO SCH ×2 (08:32→12:51)
[2017-02-10] MEDS: METOPROLOL SUCCINATE XL 50 MG TAB PO SCH (08:32)
[2017-02-10] MEDS ORDERED: GABAPENTIN 400 MG CAP ONE (08:54)
[2017-02-10] MEDS ORDERED: GABAPENTIN 300 MG CAP PO SCH (09:12)
[2017-02-10] MEDS: GABAPENTIN 100 MG CAP PO SCH (09:47)
[2017-02-10] MEDS ORDERED: GABAPENTIN 400 MG CAP PO SCH (10:00)
[2017-02-10 15:01] VITALS: BP 116/74; TEMP 97.1; O2SAT 98
--- NOTE | 2017-02-14 15:24 | DS ---
SUPERVISING PHYSICIAN: Mario Diggs MD DISCHARGE DIAGNOSIS: 1. History of multiple falls within the last month with multiple abrasions to the upper extremities and lower extremities with the right extremity showing some concerns for possibly developing cellulitis but no obvious drainage, showing much improvement prior to discharge with no signs of cellulitis at discharge. 2. Severe hyponatremia likely acute as review of the chart shows no history of hyponatremia possibly related to medication regimen with resulting previous syncopal episodes and falls. 3. Hypertension. 4. Hypothyroidism on supplementation with an elevated TSH, ongoing management. 5. Chronic iron deficiency anemia. 6. Osteoarthritis. 7. Seasonal allergies. HISTORY OF PRESENT ILLNESS: Ms. Wiseman is a 76 year-old female patient that presented to the Emergency Department due to pain she was having in her right forearm. The patient noted that she has had several near syncopal episodes approximately a week previous when she fell sustaining multiple abrasions, including an abrasion to her right upper extremity. At that time, she placed a bandage over the extremity abrasion and did not take the bandage off until a week post injury. She started noticing some seeping around the bandage and then some swelling around the area. She also noted that she was having increasing pain over the last 24 hours prior to admission. She was also having some difficulty moving the elbow, forearm and extremity due to soreness, but denied any neurovascular changes. It was also noted that the patient had multiple abrasions to the bilateral lower extremities and upper extremities as well as forehead. She had multiple wounds and some surrounding cellulitis to the right upper extremity from an abrasion, but no obvious drainage. She is on Plavix and has significant bruising around that area. She noted that she has a significant issue with falls over the last 4 to 5 months. At some point in the past year, she was found to have a significant arrhythmia and had a defibrillator placed along with a pacemaker as well as starting on Amiodarone in the last several months. She has continued to have some near syncopal episodes in the past with some documentation of history of orthostasis. Laboratory studies in the Emergency Department showed that she had a significant hyponatremia with sodium 127. Her other electrolytes were within normal limits as well as liver functions. BNP was slightly elevated. CBC showed normal white count with white count of hemoglobin and hematocrit showing some anemia at10.1 and 30.4. Differential showed to be within normal limits. Urinalysis showed just a trace of blood on dipstick with leukocyte esterase, otherwise microscopic was within normal limits. Given the significant findings for hyponatremia and past history of multiple falls, Dr. Roberson requested the patient be admitted to the hospital for treatment of her hyponatremia and further assessment of past syncopal episodes. It was noted that she also is also an antidepressant, Brintellix which has a side effect of causing some hyponatremia which possibly could be contributing to the current hyponatremic state. The patient was admitted to the Medical/Surgical floor in stable condition. LABORATORY STUDIES: Initially on admission showed a normal white count of 6, at discharge was 8.6. Hemoglobin and hematocrit were stable at discharge at 10.6 and 31.8. Platelet count was within normal limits at 243,000, Differential showed to be within normal limits. Coagulation studies showed normal PT/PTT. Chemistries initially on admission showed a sodium of 127. After 3% hypertonic saline and normal saline, at discharge it normalized with electrolytes being within normal limits with final sodium of 136, potassium 3.9. BUN and creatinine were stable and on discharge, BUN was 17, creatinine 1.01. Calcium was 9.0. Liver functions on admission showed to be within normal limits. Cardiac enzymes showed troponin of 0. BNP was elevated at 459. TSH was elevated at 8.34. Urinalysis showed a trace of blood and trace of leukoesterase on dipstick, otherwise all other within normal limits. MICROBIOLOGY: She had 2 sets of blood cultures that here negative after 5 days. RADIOLOGY: Chest x-ray in the Emergency Department prior to admission and per radiology interpretation there was no acute pleural parenchymal processes seen in the imaged mtz. After admission to the medical/surgical floor, she had a carotid artery study done bilaterally and per radiology interpretation, there was mild to moderate atherosclerosis of the bilateral carotid arteries without any significant stenosis. This was also followed up with a head CT without contrast and per radiology interpretation, showed no CT evidence of acute intracranial abnormality with senescent changes. HOSPITAL COURSE: Ms. Wiseman was admitted as noted in history of present illness for hyponatremia and past falls and cellulitis to the right arm. She was started on wound care with gentamicin topically which showed good results with no cellulitis at discharge. Her sodium was significantly low as noted in her last studies on admission and she was given initially 3% hypertonic saline in the Emergency Department. This was followed with a normal infusion with good results and normalization of her sodium. Clinically, she remained hemodynamically stable and was afebrile. Final blood pressure on discharge was 116/74 with heart rate of 77, saturation 98% on room air. Her telemetry showed atrial paced rhythm. She had o further episodes of syncope and was feeling much better and clinically improved. PLAN: Ms. Wiseman was discharged on 02/10/17 with instructions to followup with her primary care physician, Dr. Ca, as scheduled on 02/23/17 at 1400. She was told to resume her home medications as directed and take new prescriptions as instructed. Wound care of the forearm was to clean with soap, water wile in shower and then dry off with antibiotic cream to include gentamicin and cover with clean dressing as needed. She was told to return to the hospital if she had any worsening of her condition or fail to improve. All her other medications were started as per admission and to be further modified as needed by Dr. Ca. New prescription provided on discharge was gentamicin sulfate topical cream 0.1 % twice a day. Wound care as noted above of skin abrasion of right forearm, 1 tube, no refills. DISCHARGE DIET: Regular diet as tolerated. ACTIVITIES: Increase activity as tolerated and use caution on change of positions to allow herself to get stable to prevent any further syncopal episodes before she tries ambulation. DISCHARGE CONDITION: Stable and improved. #400 MTDD
== END 2017-02-10 15:00 | disposition home or self-care (01) | DRG 641 ==
LOC: ER 22:47 → MS 02-09 03:30
PROVIDERS: ADMIT Nurse Practitioner Family; ATTEND Nurse Practitioner Family
DX: E87.1 Hypo-osmolality and hyponatremia (principal); L03.113 Cellulitis of right upper limb; S40.812A Abrasion of left upper arm, initial encounter; S40.811A Abrasion of right upper arm, initial encounter; S80.812A Abrasion, left lower leg, initial encounter; S80.811A Abrasion, right lower leg, initial encounter; S00.81XA Abrasion of other part of head, initial encounter; W01.0XXA Fall on same level from slipping, tripping and stumbling without subsequent striking against object, initial encounter; Y93.9 Activity, unspecified; Y92.9 Unspecified place or not applicable; Y99.9 Unspecified external cause status; R29.6 Repeated falls; I10 Essential (primary) hypertension; E03.9 Hypothyroidism, unspecified; D50.9 Iron deficiency anemia, unspecified; M19.90 Unspecified osteoarthritis, unspecified site; R55 Syncope and collapse; K21.9 Gastro-esophageal reflux disease without esophagitis; G62.9 Polyneuropathy, unspecified; Z87.891 Personal history of nicotine dependence; Z79.82 Long term (current) use of aspirin; Z79.02 Long term (current) use of antithrombotics/antiplatelets; Z79.899 Other long term (current) drug therapy; Z95.810 Presence of automatic (implantable) cardiac defibrillator; Z95.0 Presence of cardiac pacemaker

== ENCOUNTER → 2017-02-12 | Outpatient (CLI) | payer MEDICARE, OTHER | END | disposition home or self-care (01) | LOC: BFHH 11:19 | PROVIDERS: ATTEND Family Medicine | DX: S81.801D Unspecified open wound, right lower leg, subsequent encounter (principal); I10 Essential (primary) hypertension ==

== ENCOUNTER → 2017-03-22 | Outpatient (CLI) | payer MEDICARE, OTHER | END | disposition home or self-care (01) | LOC: BFHH 10:55 | PROVIDERS: ATTEND Family Medicine | DX: D53.9 Nutritional anemia, unspecified (principal); E87.1 Hypo-osmolality and hyponatremia ==

== ENCOUNTER → 2017-06-18 | Outpatient (CLI) | payer MEDICARE, OTHER | END | disposition home or self-care (01) | LOC: BFHH 10:48 | PROVIDERS: ATTEND Family Medicine | DX: E87.1 Hypo-osmolality and hyponatremia (principal); I10 Essential (primary) hypertension; D50.9 Iron deficiency anemia, unspecified; N39.0 Urinary tract infection, site not specified ==

== ENCOUNTER → 2017-06-28 | Outpatient (CLI) | payer MEDICARE, OTHER | END | disposition home or self-care (01) | LOC: BFHH 13:24 | PROVIDERS: ATTEND Family Medicine | DX: N39.0 Urinary tract infection, site not specified (principal) ==

== ENCOUNTER → 2018-02-21 | Outpatient (CLI) | payer MEDICARE, OTHER | LOC: GMAJS 15:08 | PROVIDERS: ATTEND Physician Assistant | DX: R30.0 Dysuria (principal) ==

== ENCOUNTER → 2018-07-14 | Outpatient (CLI) | payer MEDICARE, OTHER | LOC: GMAE 10:44 | PROVIDERS: ATTEND Family Medicine | DX: E03.9 Hypothyroidism, unspecified (principal) ==

== ENCOUNTER → 2019-02-01 | Outpatient (CLI) | payer MEDICARE, OTHER | LOC: GMAE 15:41 | PROVIDERS: ATTEND Family Medicine | DX: E03.9 Hypothyroidism, unspecified (principal); Z51.81 Encounter for therapeutic drug level monitoring ==